=== PATIENT | female | born 1970 | race Hispanic/Latino ===

== ENCOUNTER → 2020-11-18 | Outpatient (CLI) | payer BC ==
[~2020-11-18] MED LIST: LIDOCAINE HCL 2% JELLY 5 ML ONE
== END | disposition home or self-care (01) ==
LOC: WHH 08:25
PROVIDERS: ATTEND Podiatrist Foot & Ankle Surgery
DX: L97.322 Non-pressure chronic ulcer of left ankle with fat layer exposed (principal); I87.8 Other specified disorders of veins; R60.9 Edema, unspecified; E66.01 Morbid (severe) obesity due to excess calories; I10 Essential (primary) hypertension; I73.9 Peripheral vascular disease, unspecified; K21.9 Gastro-esophageal reflux disease without esophagitis; Z68.43 Body mass index [BMI] 50.0-59.9, adult; Z90.5 Acquired absence of kidney; Z90.710 Acquired absence of both cervix and uterus; Z85.528 Personal history of other malignant neoplasm of kidney; Z79.899 Other long term (current) drug therapy
CPT/HCPCS: 11042; 99205; A4450; A6022

== ENCOUNTER → 2020-11-25 | Outpatient (CLI) | payer BC | END | disposition home or self-care (01) | LOC: WHH 08:00 | PROVIDERS: ATTEND Podiatrist Foot & Ankle Surgery | DX: L97.322 Non-pressure chronic ulcer of left ankle with fat layer exposed (principal); I87.8 Other specified disorders of veins; R60.9 Edema, unspecified; E66.01 Morbid (severe) obesity due to excess calories; I10 Essential (primary) hypertension; I73.9 Peripheral vascular disease, unspecified; K21.9 Gastro-esophageal reflux disease without esophagitis; Z68.43 Body mass index [BMI] 50.0-59.9, adult; Z90.5 Acquired absence of kidney; Z90.710 Acquired absence of both cervix and uterus; Z85.528 Personal history of other malignant neoplasm of kidney; Z79.899 Other long term (current) drug therapy | CPT/HCPCS: 15271; A6197; A6207; Q4101 ×2 ==

== ENCOUNTER → 2020-12-09 | Outpatient (CLI) | payer BC | END | disposition home or self-care (01) | LOC: WHH 08:00 | PROVIDERS: ATTEND Podiatrist Foot & Ankle Surgery | DX: L97.322 Non-pressure chronic ulcer of left ankle with fat layer exposed (principal); I87.8 Other specified disorders of veins; R60.9 Edema, unspecified; E66.01 Morbid (severe) obesity due to excess calories; I10 Essential (primary) hypertension; I73.9 Peripheral vascular disease, unspecified; K21.9 Gastro-esophageal reflux disease without esophagitis; Z68.43 Body mass index [BMI] 50.0-59.9, adult; Z90.5 Acquired absence of kidney; Z90.710 Acquired absence of both cervix and uterus; Z85.528 Personal history of other malignant neoplasm of kidney; Z79.899 Other long term (current) drug therapy | CPT/HCPCS: 15271; A4450; A6197; A6207; Q4101 ×2 ==

== ENCOUNTER → 2020-12-23 | Outpatient (CLI) | payer BC | END | disposition home or self-care (01) | LOC: WHH 08:30 | PROVIDERS: ATTEND Podiatrist Foot & Ankle Surgery | DX: T86.828 Other complications of skin graft (allograft) (autograft) (principal); L97.322 Non-pressure chronic ulcer of left ankle with fat layer exposed; I87.8 Other specified disorders of veins; R60.9 Edema, unspecified; E66.01 Morbid (severe) obesity due to excess calories; I10 Essential (primary) hypertension; I73.9 Peripheral vascular disease, unspecified; K21.9 Gastro-esophageal reflux disease without esophagitis; Z68.43 Body mass index [BMI] 50.0-59.9, adult; Z90.5 Acquired absence of kidney; Z90.710 Acquired absence of both cervix and uterus; Z85.528 Personal history of other malignant neoplasm of kidney; Z79.899 Other long term (current) drug therapy; Y92.238 Other place in hospital as the place of occurrence of the external cause; Y83.2 Surgical operation with anastomosis, bypass or graft as the cause of abnormal reaction of the patient, or of later complication, without mention of misadventure at the time of the procedure | CPT/HCPCS: 15271; A6209; Q4101 ×2 ==

== ENCOUNTER → 2021-01-06 | Outpatient (CLI) | payer BC | END | disposition home or self-care (01) | LOC: WHH 08:47 | PROVIDERS: ATTEND Podiatrist Foot & Ankle Surgery | DX: T86.828 Other complications of skin graft (allograft) (autograft) (principal); L97.322 Non-pressure chronic ulcer of left ankle with fat layer exposed; I87.8 Other specified disorders of veins; R60.9 Edema, unspecified; E66.01 Morbid (severe) obesity due to excess calories; I10 Essential (primary) hypertension; I73.9 Peripheral vascular disease, unspecified; K21.9 Gastro-esophageal reflux disease without esophagitis; Z68.43 Body mass index [BMI] 50.0-59.9, adult; Z90.5 Acquired absence of kidney; Z90.710 Acquired absence of both cervix and uterus; Z85.528 Personal history of other malignant neoplasm of kidney; Z79.899 Other long term (current) drug therapy; Y83.2 Surgical operation with anastomosis, bypass or graft as the cause of abnormal reaction of the patient, or of later complication, without mention of misadventure at the time of the procedure | CPT/HCPCS: 15271; A4450; A6209; Q4101 ×2 ==

== ENCOUNTER → 2021-01-13 | Outpatient (CLI) | payer BC | END | disposition home or self-care (01) | LOC: WHH 08:35 | PROVIDERS: ATTEND Podiatrist Foot & Ankle Surgery | DX: T86.828 Other complications of skin graft (allograft) (autograft) (principal); L97.322 Non-pressure chronic ulcer of left ankle with fat layer exposed; I87.8 Other specified disorders of veins; R60.9 Edema, unspecified; E66.01 Morbid (severe) obesity due to excess calories; I10 Essential (primary) hypertension; I73.9 Peripheral vascular disease, unspecified; K21.9 Gastro-esophageal reflux disease without esophagitis; Z68.43 Body mass index [BMI] 50.0-59.9, adult; Z90.5 Acquired absence of kidney; Z90.710 Acquired absence of both cervix and uterus; Z85.528 Personal history of other malignant neoplasm of kidney; Z79.899 Other long term (current) drug therapy; Y83.2 Surgical operation with anastomosis, bypass or graft as the cause of abnormal reaction of the patient, or of later complication, without mention of misadventure at the time of the procedure | CPT/HCPCS: 15275; A6209; Q4101 ×2 ==

== ENCOUNTER → 2021-01-20 | Outpatient (CLI) | payer BC | END | disposition home or self-care (01) | LOC: WHH 08:57 | PROVIDERS: ATTEND Podiatrist Foot & Ankle Surgery | DX: T86.828 Other complications of skin graft (allograft) (autograft) (principal); L97.322 Non-pressure chronic ulcer of left ankle with fat layer exposed; I87.8 Other specified disorders of veins; R60.9 Edema, unspecified; L53.9 Erythematous condition, unspecified; E66.01 Morbid (severe) obesity due to excess calories; I10 Essential (primary) hypertension; I73.9 Peripheral vascular disease, unspecified; K21.9 Gastro-esophageal reflux disease without esophagitis; Z68.43 Body mass index [BMI] 50.0-59.9, adult; Z90.5 Acquired absence of kidney; Z90.710 Acquired absence of both cervix and uterus; Z85.858 Personal history of malignant neoplasm of other endocrine glands; Z79.899 Other long term (current) drug therapy; Y83.2 Surgical operation with anastomosis, bypass or graft as the cause of abnormal reaction of the patient, or of later complication, without mention of misadventure at the time of the procedure | CPT/HCPCS: 99214; A6022; A6197 ==

== ENCOUNTER → 2021-01-27 | Outpatient (CLI) | payer BC | END | disposition home or self-care (01) | LOC: WHH 15:22 | PROVIDERS: ATTEND Podiatrist Foot & Ankle Surgery | DX: L97.322 Non-pressure chronic ulcer of left ankle with fat layer exposed (principal); I87.8 Other specified disorders of veins; R60.9 Edema, unspecified; L53.9 Erythematous condition, unspecified; E66.01 Morbid (severe) obesity due to excess calories; I10 Essential (primary) hypertension; I73.9 Peripheral vascular disease, unspecified; K21.9 Gastro-esophageal reflux disease without esophagitis; Z68.43 Body mass index [BMI] 50.0-59.9, adult; Z90.5 Acquired absence of kidney; Z90.710 Acquired absence of both cervix and uterus; Z85.858 Personal history of malignant neoplasm of other endocrine glands; Z79.899 Other long term (current) drug therapy | CPT/HCPCS: 99211; A6022; A6197 ==

== ENCOUNTER → 2021-02-03 | Outpatient (CLI) | payer BC ==
[~2021-02-03] MED LIST changes: -LIDOCAINE HCL 2% JELLY 5 ML ONE; +LIDOCAINE HCL 4% LTA SOL 4 ML VIAL ONE
== END | disposition home or self-care (01) ==
LOC: WHH 09:00
PROVIDERS: ATTEND Podiatrist Foot & Ankle Surgery
DX: L97.322 Non-pressure chronic ulcer of left ankle with fat layer exposed (principal); I87.8 Other specified disorders of veins; R60.9 Edema, unspecified; L53.9 Erythematous condition, unspecified; E66.01 Morbid (severe) obesity due to excess calories; I10 Essential (primary) hypertension; I73.9 Peripheral vascular disease, unspecified; K21.9 Gastro-esophageal reflux disease without esophagitis; Z68.43 Body mass index [BMI] 50.0-59.9, adult; Z90.5 Acquired absence of kidney; Z90.710 Acquired absence of both cervix and uterus; Z85.858 Personal history of malignant neoplasm of other endocrine glands; Z79.899 Other long term (current) drug therapy
CPT/HCPCS: 99214; A6022; A6197

== ENCOUNTER → 2021-02-05 | Outpatient (CLI) | payer BC | END | disposition home or self-care (01) | LOC: WHH 08:27 | PROVIDERS: ATTEND Podiatrist Foot & Ankle Surgery | DX: L97.322 Non-pressure chronic ulcer of left ankle with fat layer exposed (principal); I87.8 Other specified disorders of veins; R60.9 Edema, unspecified; L53.9 Erythematous condition, unspecified; E66.01 Morbid (severe) obesity due to excess calories; I10 Essential (primary) hypertension; I73.9 Peripheral vascular disease, unspecified; K21.9 Gastro-esophageal reflux disease without esophagitis; Z68.43 Body mass index [BMI] 50.0-59.9, adult; Z90.5 Acquired absence of kidney; Z90.710 Acquired absence of both cervix and uterus; Z85.858 Personal history of malignant neoplasm of other endocrine glands; Z79.899 Other long term (current) drug therapy | CPT/HCPCS: 99211; A6022; A6197 ==

== ENCOUNTER → 2021-02-08 | Outpatient (CLI) | payer BC | END | disposition home or self-care (01) | LOC: WHH 08:45 | PROVIDERS: ATTEND Podiatrist Foot & Ankle Surgery | DX: L97.322 Non-pressure chronic ulcer of left ankle with fat layer exposed (principal); I87.8 Other specified disorders of veins; R60.9 Edema, unspecified; L53.9 Erythematous condition, unspecified; E66.01 Morbid (severe) obesity due to excess calories; I10 Essential (primary) hypertension; I73.9 Peripheral vascular disease, unspecified; K21.9 Gastro-esophageal reflux disease without esophagitis; Z68.43 Body mass index [BMI] 50.0-59.9, adult; Z90.5 Acquired absence of kidney; Z90.710 Acquired absence of both cervix and uterus; Z85.858 Personal history of malignant neoplasm of other endocrine glands; Z79.899 Other long term (current) drug therapy | CPT/HCPCS: 99211; A6022; A6197 ==

== ENCOUNTER → 2021-02-10 | Outpatient (CLI) | payer BC | END | disposition home or self-care (01) | LOC: WHH 11:48 | PROVIDERS: ATTEND Podiatrist Foot & Ankle Surgery | DX: L97.322 Non-pressure chronic ulcer of left ankle with fat layer exposed (principal); I87.8 Other specified disorders of veins; R60.9 Edema, unspecified; L53.9 Erythematous condition, unspecified; E66.01 Morbid (severe) obesity due to excess calories; I10 Essential (primary) hypertension; I73.9 Peripheral vascular disease, unspecified; K21.9 Gastro-esophageal reflux disease without esophagitis; Z68.43 Body mass index [BMI] 50.0-59.9, adult; Z90.5 Acquired absence of kidney; Z90.710 Acquired absence of both cervix and uterus; Z85.828 Personal history of other malignant neoplasm of skin; Z79.899 Other long term (current) drug therapy | CPT/HCPCS: 99211; A6022; A6197 ==

== ENCOUNTER → 2021-02-12 | Outpatient (CLI) | payer BC | END | disposition home or self-care (01) | LOC: WHH 08:44 | PROVIDERS: ATTEND Family Medicine | DX: L97.322 Non-pressure chronic ulcer of left ankle with fat layer exposed (principal); I87.8 Other specified disorders of veins; R60.9 Edema, unspecified; L53.9 Erythematous condition, unspecified; E66.01 Morbid (severe) obesity due to excess calories; I10 Essential (primary) hypertension; I73.9 Peripheral vascular disease, unspecified; K21.9 Gastro-esophageal reflux disease without esophagitis; Z68.43 Body mass index [BMI] 50.0-59.9, adult; Z90.5 Acquired absence of kidney; Z90.710 Acquired absence of both cervix and uterus; Z79.899 Other long term (current) drug therapy; Z85.828 Personal history of other malignant neoplasm of skin | CPT/HCPCS: 99211; A6022; A6197 ==

== ENCOUNTER → 2021-02-15 | Outpatient (CLI) | payer BC | END | disposition home or self-care (01) | LOC: WHH 08:52 | PROVIDERS: ATTEND Podiatrist Foot & Ankle Surgery | DX: L97.322 Non-pressure chronic ulcer of left ankle with fat layer exposed (principal); I87.8 Other specified disorders of veins; R60.9 Edema, unspecified; L53.9 Erythematous condition, unspecified; E66.01 Morbid (severe) obesity due to excess calories; I10 Essential (primary) hypertension; I73.9 Peripheral vascular disease, unspecified; K21.9 Gastro-esophageal reflux disease without esophagitis; Z68.43 Body mass index [BMI] 50.0-59.9, adult; Z90.5 Acquired absence of kidney; Z90.710 Acquired absence of both cervix and uterus; Z79.899 Other long term (current) drug therapy; Z85.828 Personal history of other malignant neoplasm of skin | CPT/HCPCS: 99211; A6022; A6197 ==

== ENCOUNTER → 2021-02-17 | Outpatient (CLI) | payer BC | END | disposition home or self-care (01) | LOC: WHH 08:58 | PROVIDERS: ATTEND Podiatrist Foot & Ankle Surgery | DX: L97.322 Non-pressure chronic ulcer of left ankle with fat layer exposed (principal); I87.8 Other specified disorders of veins; R60.9 Edema, unspecified; L53.9 Erythematous condition, unspecified; E66.01 Morbid (severe) obesity due to excess calories; I10 Essential (primary) hypertension; I73.9 Peripheral vascular disease, unspecified; K21.9 Gastro-esophageal reflux disease without esophagitis; Z68.43 Body mass index [BMI] 50.0-59.9, adult; Z90.5 Acquired absence of kidney; Z90.710 Acquired absence of both cervix and uterus; Z79.899 Other long term (current) drug therapy; Z85.828 Personal history of other malignant neoplasm of skin | CPT/HCPCS: 99214 ==